=== PATIENT | male | born 1950 | race Caucasian/White ===

== ENCOUNTER 2016-08-02 10:38 | Emergency (ER) | payer MEDICARE ==
[~2016-08-02] VITALS: Ht 188 cm; Wt 88.5 kg
[2016-08-02] MEDS ORDERED: IV NS 0.9% 1,000 ML ONE (10:54)
[2016-08-02] MEDS ORDERED: IV SET PRIMARY 1 EA INFUS.SET MC ONE (10:54)
[2016-08-02] MEDS ORDERED: IV NS 0.9% 1,000 ML BAG IV ONE (11:00)
[2016-08-02] MEDS ORDERED: IV SET PRIMARY PUMP SET 1 EA INFUS.SET MC ONE (11:25)
[2016-08-02 11:30] LABS: BASOPHILS # (AUTO) 0.2 /CMM (0.0-0.2); BASOPHILS % (AUTO) 2.2 % (0.0-2.0); DIFF TOTAL % 100 %; EOSINOPHILS # (AUTO) 0.1 /CMM (0.0-0.7); EOSINOPHILS % (AUTO) 0.9 % (0.0-6.0); HEMATOCRIT 43 % (39-51); HEMOGLOBIN 14.2 g/dL (13.5-17.5); LYMPHOCYTES # (AUTO) 2.7 /CMM (0.8-4.8); LYMPHOCYTES % (AUTO) 31.7 % (20.0-44.0); MEAN CORPUSCULAR HEMOGLOBIN 30 PG (26.0-33.0); MEAN CORPUSCULAR HGB CONC 33 g/dl (31.0-36.0); MEAN CORPUSCULAR VOLUME 90 fL (80-96); MONOCYTES # (AUTO) 0.5 /CMM (0.1-1.30); MONOCYTES % (AUTO) 5.4 % (2.0-12.0); NEUTROPHILS % (AUTO) 59.8 % (43.0-81.0); PLATELET COUNT (AUTO) 218 /CMM (150-450); RED BLOOD CELL COUNT(AUTO) 4.79 MIL/uL (4.5-6.0); WHITE BLOOD COUNT (AUTO) 8.5 K/uL (4.3-11.0)
[2016-08-02] MEDS ORDERED: LEVETIRACETAM (500MG) 500 MG in IV NS 0.9% 100 ML IV SCH (11:30)
[2016-08-02 11:37] LABS: ANION GAP 12 (5-14); CALCIUM, SERUM 8.6 mg/dL (8.5-10.1); CARBON DIOXIDE 28 mmol/L (21-32); CHLORIDE 104 mmol/L (98-107); GFR 75 mL/min (>60); GLUCOSE 101 mg/dL (74-106); POTASSIUM 3.9 mmol/L (3.5-5.1); SODIUM SERUM 140 mmol/L (136-145); UREA NITROGEN, BLOOD 12 mg/dL (7-18)
[2016-08-02 11:42] LABS: ALANINE AMINOTRANSFERASE 21 U/L (12-78); ALBUMIN 3.6 g/dL (3.4-5.0); ASPARTATE AMINOTRANSFERASE 25 U/L (15-37); BILIRUBIN,DIRECT 0.1 mg/dL (0.0-0.2); BILIRUBIN,TOTAL 0.3 mg/dL (0.2-1.0); INDIRECT BILIRUBIN 0.2 mg/dL (0.0-1.1); TOTAL PROTEIN, SERUM 7.1 g/dL (6.4-8.2)
[2016-08-02] MEDS ORDERED: phenytoin SODIUM IV 1,000 MG in IV NS 0.9% 100 ML IV ONE (12:00)
[2016-08-02 12:30] VITALS: BP 129/75
== END 2016-08-02 12:32 | disposition left against medical advice (07) ==
LOC: ER 10:42
DX: G40.909 Epilepsy, unspecified, not intractable, without status epilepticus (principal); F17.200 Nicotine dependence, unspecified, uncomplicated
CPT/HCPCS: 36415; 70450-TC; 80048-TC; 80076-TC; 85025-TC; A4606; G6040-TC; J1165; J1953; J7030; Z7610

== ENCOUNTER 2016-10-05 10:48 | Emergency (ER) | payer MEDICARE ==
[~2016-10-05] VITALS: Ht 182.9 cm; Wt 81.6 kg
--- NOTE | 2016-10-05 10:50 | NUR ---
AAOX3, BIBRA 77 c/o altered mental status possible post seizure, patient has hx of seizure, but not on any medication, no trauma. Resp is even and unlabored with nad noted. skin is warm and dry. awaiting md for eval. ivhl r hand 20g noted [employer].
[2016-10-05 11:37] LABS: BASOPHILS % (AUTO) 0.7 % (0.0-2.0); EOSINOPHILS # (AUTO) 0.1 /CMM (0.0-0.7); EOSINOPHILS % (AUTO) 1.2 % (0.0-6.0); HEMATOCRIT 43 % (39-51); HEMOGLOBIN 14.4 g/dL (13.5-17.5); LYMPHOCYTES # (AUTO) 2.4 /CMM (0.8-4.8); LYMPHOCYTES % (AUTO) 34.4 % (20.0-44.0); MEAN CORPUSCULAR HEMOGLOBIN 30 PG (26.0-33.0); MEAN CORPUSCULAR HGB CONC 33 g/dl (31.0-36.0); MEAN CORPUSCULAR VOLUME 89 fL (80-96); MONOCYTES # (AUTO) 0.4 /CMM (0.1-1.30); NEUTROPHILS % (AUTO) 57.7 % (43.0-81.0); PLATELET COUNT (AUTO) 218 /CMM (150-450); RDW COEFFICIENT OF VARIATION 12.8 (11.5-15.0); RED BLOOD CELL COUNT(AUTO) 4.86 MIL/uL (4.5-6.0); WHITE BLOOD COUNT (AUTO) 6.9 K/uL (4.3-11.0)
--- NOTE | 2016-10-05 12:21 | NUR ---
Dr Lopez at [facility] for an update and re-eval.
--- NOTE | 2016-10-05 12:23 | NUR ---
provided crackers and apple juice.
[2016-10-05 12:36] LABS: CALCIUM, SERUM 7.6 mg/dL (8.5-10.1); POTASSIUM 3.6 mmol/L (3.5-5.1)
[2016-10-05 12:40] LABS: ALBUMIN 3.3 g/dL (3.4-5.0); BILIRUBIN,DIRECT 0.1 mg/dL (0.0-0.2); BILIRUBIN,TOTAL 0.2 mg/dL (0.2-1.0); TOTAL PROTEIN, SERUM 6.2 g/dL (6.4-8.2)
--- NOTE | 2016-10-05 12:43 | NUR ---
DR HENDRICKS AT [facility] FOR AN UPDATE AND RE-EVAL
--- NOTE | 2016-10-05 13:44 | NUR ---
IV removed. Catheter intact and site benign. Pressure and 4x4 applied to site. No bleeding noted.Patient discharged to home in stable condition. Written and verbal after care instructions given. Patient verbalizes understanding of instruction.
[2016-10-05 13:45] VITALS: BP 127/70
--- NOTE | 2016-10-05 13:51 | NUR ---
PATIENT AMBULATES OUT OF ER WITH STABLE GAIT. AAOX3.
== END 2016-10-05 13:51 | disposition home or self-care (01) ==
LOC: ER 10:50
DX: R56.9 Unspecified convulsions (principal); E87.1 Hypo-osmolality and hyponatremia; F17.200 Nicotine dependence, unspecified, uncomplicated
CPT/HCPCS: 36415; 80048-TC; 80076-TC; 85025-TC; A4606; Z7610

== ENCOUNTER 2016-11-11 12:45 | Emergency (ER) | payer MEDICARE ==
[~2016-11-11] VITALS: Ht 170.2 cm; Wt 70.3 kg
[2016-11-11 13:01] VITALS: BP 150/64
[2016-11-11] MEDS ORDERED: LEVETIRACETAM (250 MG) 250 MG TABLET PO ONE ×2 (13:30→13:44)
[2016-11-11 13:34] LABS: BASOPHILS # (AUTO) 0.3 /CMM (0.0-0.2); BASOPHILS % (AUTO) 3.1 % (0.0-2.0); EOSINOPHILS # (AUTO) 0.1 /CMM (0.0-0.7); EOSINOPHILS % (AUTO) 0.8 % (0.0-6.0); HEMATOCRIT 45 % (39-51); HEMOGLOBIN 14.9 g/dL (13.5-17.5); LYMPHOCYTES # (AUTO) 2.8 /CMM (0.8-4.8); LYMPHOCYTES % (AUTO) 33.5 % (20.0-44.0); MEAN CORPUSCULAR HEMOGLOBIN 29 PG (26.0-33.0); MEAN CORPUSCULAR HGB CONC 33 g/dl (31.0-36.0); MEAN CORPUSCULAR VOLUME 89 fL (80-96); MONOCYTES # (AUTO) 0.5 /CMM (0.1-1.30); NEUTROPHILS # (AUTO) 4.6 /CMM (1.8-8.9); NEUTROPHILS % (AUTO) 56.6 % (43.0-81.0); PLATELET COUNT (AUTO) 193 /CMM (150-450); RDW COEFFICIENT OF VARIATION 12.9 (11.5-15.0); RED BLOOD CELL COUNT(AUTO) 5.07 MIL/uL (4.5-6.0); WHITE BLOOD COUNT (AUTO) 8.3 K/uL (4.3-11.0)
[2016-11-11 13:40] LABS: CALCIUM, SERUM 9.3 mg/dL (8.5-10.1); CREATININE 1.1 mg/dL (0.6-1.3); POTASSIUM 3.7 mmol/L (3.5-5.1)
[2016-11-11 13:50] LABS: ALBUMIN 3.6 g/dL (3.4-5.0); BILIRUBIN,TOTAL 0.2 mg/dL (0.2-1.0); TOTAL PROTEIN, SERUM 7.1 g/dL (6.4-8.2)
--- NOTE | 2016-11-11 14:29 | NUR ---
PT REFUSED KEPPRA. STATES WANT TO LEAVE. AMBULATORY W/ STEADY GAIT. D/C IN STABLE CONDITION.
== END 2016-11-11 14:31 | disposition home or self-care (01) ==
LOC: ER 12:46
DX: R56.9 Unspecified convulsions (principal); F17.200 Nicotine dependence, unspecified, uncomplicated
CPT/HCPCS: 36415; 80053-TC; 80076-TC; 85025-TC; A4606; Z7610

== ENCOUNTER 2017-02-02 13:11 | Emergency (ER) | payer MEDICARE ==
[~2017-02-02] VITALS: Ht 170.2 cm; Wt 72.6 kg
--- NOTE | 2017-02-02 13:16 | NUR ---
PT BIB RA S/P SZ AT [facility]. NO VISIBLE TRAUMA. RESP EVEN UNLABORED. SKIN WARM NONDIAPHORETIC. A/OX4. GCS 15. PER EMS, PT WAS POSTICTAL WITH GCS 9 AT SCENE. IN ER BED 12 ON MONITOR.
[2017-02-02 13:28] LABS: BASOPHILS # (AUTO) 0.1 /CMM (0.0-0.2); BASOPHILS % (AUTO) 1.5 % (0.0-2.0); EOSINOPHILS # (AUTO) 0.1 /CMM (0.0-0.7); EOSINOPHILS % (AUTO) 0.6 % (0.0-6.0); HEMATOCRIT 45 % (39-51); HEMOGLOBIN 14.9 g/dL (13.5-17.5); LYMPHOCYTES # (AUTO) 4.8 /CMM (0.8-4.8); LYMPHOCYTES % (AUTO) 55.3 % (20.0-44.0); MEAN CORPUSCULAR HEMOGLOBIN 29 PG (26.0-33.0); MEAN CORPUSCULAR HGB CONC 33 g/dl (31.0-36.0); MEAN CORPUSCULAR VOLUME 89 fL (80-96); MONOCYTES # (AUTO) 0.5 /CMM (0.1-1.30); NEUTROPHILS # (AUTO) 3.2 /CMM (1.8-8.9); NEUTROPHILS % (AUTO) 36.6 % (43.0-81.0); PLATELET COUNT (AUTO) 208 /CMM (150-450); RDW COEFFICIENT OF VARIATION 13.1 (11.5-15.0); RED BLOOD CELL COUNT(AUTO) 5.08 MIL/uL (4.5-6.0); WHITE BLOOD COUNT (AUTO) 8.7 K/uL (4.3-11.0)
[2017-02-02 13:37] LABS: CALCIUM, SERUM 9.4 mg/dL (8.5-10.1); CARBON DIOXIDE 26 mmol/L (21-32); CHLORIDE 103 mmol/L (98-107); CREATININE 1.3 mg/dL (0.6-1.3); GLUCOSE 99 mg/dL (74-106); POTASSIUM 3.5 mmol/L (3.5-5.1); SODIUM SERUM 142 mmol/L (136-145); UREA NITROGEN, BLOOD 16 mg/dL (7-18)
[2017-02-02 13:43] LABS: ALANINE AMINOTRANSFERASE 18 U/L (12-78); ALBUMIN 3.8 g/dL (3.4-5.0); ALKALINE PHOSPHATASE 80 U/L (46-116); ASPARTATE AMINOTRANSFERASE 29 U/L (15-37); BILIRUBIN,DIRECT 0.1 mg/dL (0.0-0.2); BILIRUBIN,TOTAL 0.5 mg/dL (0.2-1.0); TOTAL PROTEIN, SERUM 7.4 g/dL (6.4-8.2)
[2017-02-02 13:58] LABS: PHENYTOIN (DILANTIN) < 0.5 ug/ml (10.0-20.0)
[2017-02-02] MEDS: phenytoin SODIUM IV 1,000 MG in IV NS 0.9% 100 ML IV ONE ×2 (14:35→14:47)
--- NOTE | 2017-02-02 14:35 | NUR ---
PT REFUSING DILANTIN DESPITE EDUCATION ON BENEFITS AND RISKS OF MEDICATION, STATING "IT GAVE ME A SEIZURE". MD NOTIFIED. NO FURHTER SZ ACTIVITY NOTED.
--- NOTE | 2017-02-02 15:26 | NUR ---
IV removed. Catheter intact and site benign. Pressure and 4x4 applied to site. No bleeding noted. Patient discharged to home in stable condition. Written and verbal after care instructions given. Patient verbalizes understanding of instruction. AMBULATORY WITH STEADY GAIT.
[2017-02-02 15:27] VITALS: BP 156/75
== END 2017-02-02 15:28 | disposition home or self-care (01) ==
LOC: ER 13:12
DX: G40.909 Epilepsy, unspecified, not intractable, without status epilepticus (principal); R51 Headache; G93.89 Other specified disorders of brain; F17.200 Nicotine dependence, unspecified, uncomplicated
CPT/HCPCS: 36415; 70450-TC; 80048-TC; 80076-TC; 80185-TC; 85025-TC; A4606; J1165; J7030; Z7610

== ENCOUNTER 2017-09-18 15:58 | Emergency (ER) | payer MEDICARE ==
[~2017-09-18] VITALS: Ht 180.3 cm; Wt 81.6 kg
--- NOTE | 2017-09-18 16:10 | NUR ---
AAOX3, BIBRA 77 FROM THE [facility]ARY FOR SEIZURE, BUT PATIENT DENIES HE HAD A SEIZURE, HE KNEW WHAT HAPPENED THE WHOLE TIME. RR IS EVEN AND UNLABORED WITH NAD NOTED. SKIN IS WARM AND DRY. AWAITING MD FOR EVAL.
--- NOTE | 2017-09-18 16:13 | NUR ---
DR JIANG AT [facility] FOR EVAL.
--- NOTE | 2017-09-18 16:40 | NUR ---
PROVIDED FOOD AT .
[2017-09-18 17:02] VITALS: BP 148/91
== END 2017-09-18 17:15 | disposition home or self-care (01) ==
LOC: ER 16:01
DX: Z00.8 Encounter for other general examination (principal); F10.10 Alcohol abuse, uncomplicated; F17.200 Nicotine dependence, unspecified, uncomplicated; Z98.890 Other specified postprocedural states
CPT/HCPCS: 99283; A4606; Z7610

== ENCOUNTER 2021-10-21 13:16 | Emergency (ER) | payer MEDICARE ==
[~2021-10-21] VITALS: Ht 188 cm; Wt 79.4 kg
--- NOTE | 2021-10-21 13:16 | NUR ---
TO ER BED 11. BIBRA 97 FROM [employer], FOUND SHAKING ON THE GROUND BY BYSTANDER HAS HISTORY OF SEIZURE. NO TRAUMA NOTES. BLOOD SUGAR 122. PT ATTCHED TO MONITOR. SEIZURE PRECAUTIONS IN PLACE.
--- NOTE | 2021-10-21 13:20 | NUR ---
PT UNALBLE TO PROVIDE URINE SAMPLE, STATED HE WENT PRIOR TO ARRIVAL. URINAL PROVIDED AT BEDSIDE.
[2021-10-21 13:52] LABS: BASOPHILS % (AUTO) 0.6 % (0.0-2.0); EOSINOPHILS % (AUTO) 1.4 % (0.0-6.0); HEMATOCRIT 42 % (39-51); HEMOGLOBIN 13.8 g/dL (13.5-17.5); LYMPHOCYTES # (AUTO) 3.3 K/uL (0.8-4.8); LYMPHOCYTES % (AUTO) 40.3 % (20.0-44.0); MEAN CORPUSCULAR HGB CONC 33 g/dl (31.0-36.0); MEAN CORPUSCULAR VOLUME 90 fL (80-96); MONOCYTES # (AUTO) 0.5 K/uL (0.1-1.30); MONOCYTES % (AUTO) 6.2 % (2.0-12.0); NEUTROPHILS # (AUTO) 4.2 K/uL (1.8-8.9); NEUTROPHILS % (AUTO) 51.5 % (43.0-81.0); PLATELET COUNT (AUTO) 192 K/uL (150-450); RED BLOOD CELL COUNT(AUTO) 4.61 MIL/uL (4.5-6.0); WHITE BLOOD COUNT (AUTO) 8.2 K/uL (4.3-11.0)
--- NOTE | 2021-10-21 14:40 | NUR ---
PT REFUSING TO PROVIDE URINE SAMPLE.
[2021-10-21 14:56] LABS: CALCIUM, SERUM 9.1 mg/dL (8.5-10.1); CREATININE 1.3 mg/dL (0.6-1.3); POTASSIUM 3.6 mmol/L (3.5-5.1)
[2021-10-21 15:03] LABS: ALBUMIN 3.9 g/dL (3.4-5.0); BILIRUBIN,DIRECT 0.1 mg/dL (0.0-0.2); TOTAL PROTEIN, SERUM 7.7 g/dL (6.4-8.2)
--- NOTE | 2021-10-21 15:10 | NUR ---
Patient discharged to home in stable condition. Written and verbal after care instructions given. Patient verbalizes understanding of instruction.
[2021-10-21 15:11] VITALS: BP 195/102
[2021-10-21 15:35] LABS: BILIRUBIN,TOTAL 0.4 mg/dL (0.2-1.0)
== END 2021-10-21 15:11 | disposition home or self-care (01) ==
LOC: ER 13:32
DX: R56.9 Unspecified convulsions (principal); Z87.820 Personal history of traumatic brain injury; Z59.00 Homelessness unspecified
CPT/HCPCS: 36415; 80048-TC; 80076-TC; 85025-TC